=== PATIENT | male | born 1965 | race Hispanic/Latino ===

== ENCOUNTER 2019-09-30 21:12 | Inpatient (IN) | payer OTHER, SELFPAY ==
[~2019-09-30 21:12] MED LIST: Iopamidol-370 76% 500 ML 1 ML ONE
[2019-09-30] MEDS ORDERED: Ketorolac Tromethamine 30 MG/ML VIAL ONE (21:33)
--- NOTE | 2019-09-30 21:57 | RAD ---
Exam: Chest one view HISTORY:Fever. Headache. Comparison: None FINDINGS: Cardiac silhouette: Normal Aorta: Unremarkable Pulmonary vessels: Normal Costophrenic angles: Clear LUNGS: No masses or consolidation. Pneumothorax: None Osseous abnormalities: None IMPRESSION: No acute cardiopulmonary process.
[2019-09-30 22:03] LABS: Hemoglobin 11.1 g/dL (14.0-18.0); Mean Corpuscular HGB CONC 34.6 g/dL (32.0-36.0); Red Blood Cell (RBC) Count 3.18 mill/uL (4.70-6.10); White Blood Cell (WBC) Count 12.7 thou/uL (4.8-10.8)
[2019-09-30 22:10] LABS: ALT (SGPT) 39 U/L (8-55); AST (SGOT) 18 U/L (5-34); Albumin 3.7 g/dL (3.5-5.0); Alkaline Phosphatase 100 U/L (40-110); Anion Gap 13 mmol/L (10-20); BUN (Urea Nitrogen) 24 mg/dL (8.4-25.7); Bilirubin, Total 5.2 mg/dL (0.2-1.2); Calc. Creatinine Clearance 0 mL/min (70-130); Calcium 8.7 mg/dL (7.8-10.44); Carbon Dioxide 20 mmol/L (22-29); Chloride 102 mmol/L (98-107); Estimated GFR-MDRD 45; Globulin 2.8 g/dL (2.4-3.5); Glucose 353 mg/dL (70-105); Potassium 4.1 mmol/L (3.5-5.1); Protein, Total 6.5 g/dL (6.0-8.3); Sodium 131 mmol/L (136-145)
[2019-09-30 22:16] LABS: Mean Platelet Volume 9.1 fL (7.4-10.4); Platelet Count 115 thou/uL (130-400)
[2019-09-30 22:18] LABS: Band 60 % (5-11); Lymphocytes 2 % (21-51); MDiff Complete? YES; Macrocytosis SLIGHT = 6-15 cells (100X) (0-5/hpf); Metamyelocyte 2 % (0-0); Monocytes 3 % (0-10); Neutrophil 32 % (42-75); Platelet Morphology Comment Appears Decreased; Polychromasia SLIGHT = 2-3 cells (100X) (0-2/hpf); Reactive Lymphocytes 1 % (0-10); Reflex for Review?? YES
[2019-09-30] MEDS ORDERED: cefTRIAXone\\ROCEPHIN 2 GM VIAL ONE (23:11)
[2019-09-30] MEDS ORDERED: Vancomycin HCl 1.75 GM in Sodium Chloride 0.9% 500 ML IVPB SCH (23:15)
[2019-09-30 23:17] LABS: Bilirubin Negative (Negative); Blood, Urine Trace (Negative); Clarity Clear (Clear); Glucose, Urine (Dipstick) Greater than 1000 mg/dL (Negative); Ketone, Urine Negative (Negative); Leukocyte 250 Leu/uL (Negative); Nitrite Negative (Negative); Protein, Urine (Dipstick) 30 mg/dL (Neg-Trace); RBC/HPF 0-3 HPF (0-3); Specific Gravity, Urine 1.024 (1.002-1.036); Squamous Epithelial 0-3 HPF (0-3); WBC/HPF 21-50 HPF (0-3)
[2019-09-30 23:20] LABS: Bacteria/HPF 1+ HPF (None Seen)
[2019-09-30] MEDS ORDERED: Albuterol 200 PUFF (6.7GM INHALER) ONE (23:22)
[2019-09-30] MEDS ORDERED: Midazolam HCl 2 mg/2 ml Vial ONE (23:33)
[2019-09-30] MEDS ORDERED: cloNIDine 0.1 MG TAB PO PRN (23:40)
[2019-09-30] MEDS ORDERED: Ondansetron PF 4 MG/2 ML Vial IVP PRN (23:40)
[2019-09-30] MEDS ORDERED: Promethazine HCl 12.5 MG in Sodium Chloride 0.9% 50 ML IVPB PRN (23:40)
[2019-09-30] MEDS ORDERED: Morphine 2 MG/ML VIAL SLOW IVP PRN (23:40)
[2019-09-30] MEDS ORDERED: Guaifenesin DM 100-10/5 ML UDCUP PO PRN (23:40)
[2019-09-30] MEDS ORDERED: HYDROcodone/Acetaminophen 5/325 mg Tablet PO PRN (23:40)
[2019-09-30] MEDS ORDERED: Labetalol HCl 100 MG/20 ML VIAL SLOW IVP PRN (23:40)
[2019-09-30] MEDS ORDERED: hydrALAZINE 20 MG/ML VIAL SLOW IVP PRN (23:40)
[2019-09-30] MEDS ORDERED: Bisacodyl 10 MG SUPP PR PRN (23:42)
[2019-09-30] MEDS ORDERED: Bisacodyl 5 MG TAB PO PRN (23:42)
--- NOTE | 2019-09-30 23:44 | PDOC.HHP ---
Hospitalist HPI - History of Present Illness Fever, headache History of Present Illness: Patient is a 54 year old male with PMH T2DM, HTN who presents to ED for fever and headache x 1 day. Patient reports onset of symptoms yesterday, intermittent since them, somewhat responsive to OTC tylenol at home. Of note, had not had any shortness of breath before arrival, however right at time of admission patient developed shortness of breath, CTA chest and CT abdomen performed after this and results pending. CXR with no acute findings. Denies cough. Has some new abdominal pain in last few hours as well, denies nausea/vomiting/diarrhea. Denies sick contacts or coronavirus exposure. In ED, WBC 12, CXR no acute findings, hgb 11.7, na 131, Cr 1.6, glucose 353. lactic acid 2.7. UA with positive infectious markers. given 2.5L of fluid, given toradol with improvement of symptoms. given vancomycin and ceftriaxone and albuterol. Hospitalist ROS - Review of Systems Constitutional: reports: fever, chills, weakness Eyes: denies: pain, vision change, conjunctivae inflammation, eyelid inflammation, redness, other ENT: denies: ear pain, ear discharge, nose pain, nose discharge, nose congestion , mouth pain, mouth swelling, throat pain, throat swelling, other Respiratory: reports: shortness of breath, wheezing. denies: cough, dry, hemoptysis, SOB with excertion, pleuritic pain, sputum, other Cardiovascular: denies: chest pain, palpitations, orthopnea, paroxysmal noc. dyspnea, edema, light headedness, other Gastrointestinal: denies: nausea, vomiting, abdominal pain, diarrhea, constipation, melena, hematochezia, other Genitourinary: denies: dysuria, frequency, incontinence, hematuria, retention, other Musculoskeletal: denies: neck pain, shoulder pain, arm pain, back pain, hand pain, leg pain, foot pain, other Skin: denies: rash, lesions, star, bruising, other Neurological: denies: weakness, numbness, incoordination, change in speech, confusion, seizures, other All other systems reviewed; all pertinent +/- noted in HPI/Subj - Medication Medications: reviewed, none Hospitalist History - Past Medical History Other Medical History: DM, HTN - Past Surgical History Past Surgical History: reports: no pertinent history - Family History Family History: reports: no pertinent history - Social History Smoking Status: Never smoker Alcohol: reports: None Drugs: reports: none - Exam General Appearance: NAD, awake alert Eye: PERRL, anicteric sclera ENT: normocephalic atraumatic, no oropharyngeal lesions, moist mucosa Neck: supple, symmetric, no JVD, no thyromegaly, no lymphadenopathy, no carotid bruit Heart: RRR, no murmur, no gallops, no rubs, normal peripheral pulses Respiratory: CTAB, no rales, no ronchi, normal chest expansion, no tachypnea, normal percussion, wheezes Gastrointestinal: soft, non-tender, non-distended, normal bowel sounds, no palpable masses, no hepatomegaly, no splenomegaly, no bruit Extremities: no cyanosis, no clubbing, no edema Skin: normal turgor, no lesions, no rashes Neurological: cranial nerve grossly intact, normal sensation to touch, no weakness, no focal deficits, no new deficit Musculoskeletal: normal tone, normal strength, no muscle wasting Psychiatric: normal affect, normal behavior, A&O x 3 Hospitalist Results - Labs Result Diagrams: 09/30/19 21:38 09/30/19 21:38 Lab results: WBC 12.7 thou/uL (4.8-10.8) H 09/30/19 21:38 Hgb 11.1 g/dL (14.0-18.0) L 09/30/19 21:38 Hct 32.2 % (42.0-52.0) L 09/30/19 21:38 MCV 101.0 fL (78.0-98.0) H 09/30/19 21:38 Plt Count 115 thou/uL (130-400) L 09/30/19 21:38 Band Neuts % (Manual) 60 % (5-11) H 09/30/19 21:38 Sodium 131 mmol/L (136-145) L 09/30/19 21:38 Potassium 4.1 mmol/L (3.5-5.1) 09/30/19 21:38 Chloride 102 mmol/L (98-107) 09/30/19 21:38 Carbon Dioxide 20 mmol/L (22-29) L 09/30/19 21:38 BUN 24 mg/dL (8.4-25.7) 09/30/19 21:38 Creatinine 1.60 mg/dL (0.7-1.3) H 09/30/19 21:38 Glucose 353 mg/dL (70-105) H 09/30/19 21:38 Lactic Acid 2.7 mmol/L (0.5-2.2) H 09/30/19 21:38 Calcium 8.7 mg/dL (7.8-10.44) 09/30/19 21:38 Total Bilirubin 5.2 mg/dL (0.2-1.2) H 09/30/19 21:38 AST 18 U/L (5-34) 09/30/19 21:38 ALT 39 U/L (8-55) 09/30/19 21:38 Alkaline Phosphatase 100 U/L (40-110) 09/30/19 21:38 Serum Total Protein 6.5 g/dL (6.0-8.3) 09/30/19 21:38 Albumin 3.7 g/dL (3.5-5.0) 09/30/19 21:38 Urine Ketones Negative mg/dL (Negative) 09/30/19 22:58 Urine Blood Trace (Negative) A 09/30/19 22:58 Urine Nitrite Negative (Negative) 09/30/19 22:58 Ur Leukocyte Esterase 250 Cisco/uL (Negative) A 09/30/19 22:58 Urine RBC 0-3 HPF (0-3) 09/30/19 22:58 Urine WBC 21-50 HPF (0-3) A 09/30/19 22:58 Ur Squamous Epith Cells 0-3 HPF (0-3) 09/30/19 22:58 Urine Bacteria 1+ HPF (None Seen) A 09/30/19 22:58 Hospitalist H&P A/P - Plan Plan: Patient is a 54 year old male with PMH T2DM, HTN who presents to ED for fever and headache x 1 day. # sepsis suspected due to UTI # UTI - admit to floor - vancomycin/levaquin - discontinued ceftraxone due to possible allergy - follow up cultures # wheezing, SOB - happened after ceftriaxone, switched abx to levaquin, added ceftriaxone to allergy list, resolved wheezing with albuterol - follow up Ct abdomen, CTA chest # uncontrolled DM - A1C - moderate SSI # hyponatremia # ALANA suspect prerenal due to sepsis, trend BMP and follow up now that flori has had IVF DVT/GI ppx Full code
[2019-10-01] MEDS ORDERED: Acetaminophen 500 MG TAB ONE (00:25)
[2019-10-01 00:36] LABS: Lactic Acid 3.7 mmol/L (0.5-2.2)
[2019-10-01] MEDS: Sodium Chloride 0.9% 1,000 ML IV SCH ×3 (03:09→20:58)
[2019-10-01] MEDS ORDERED: Dextrose 5% in Water 1,000 ML IV PRN (03:26)
[2019-10-01] MEDS ORDERED: Dextrose 50% Abboject 50 ML SYRINGE SLOW IVP PRN (03:26)
[2019-10-01 04:11] VITALS: BMI 29.4
[2019-10-01 04:14] LABS: Hemoglobin A1c 6.3 % (4.0-6.0)
[2019-10-01] MEDS: HumaLOG 300 UNITS/3 ML VIAL SC PRN (06:34)
--- NOTE | 2019-10-01 07:23 | CT ---
PRELIMINARY REPORT/[facility]/EMERGENCY AFTER HOURS PROCEDURE EXAM: CT Chest with Intravenous Contrast. CT Abdomen and Pelvis with Intravenous Contrast CLINICAL HISTORY: 54-year-old male presents with a chief complaint of fever and headache. Patient reports onset of symp toms yesterday, intermittent since then. Patient denies any significant changes yesterday. Patient states he took some Tylenol about 2 hours prior to arrival for the headache and fever, this did bring the fever down a little bit. No nausea or vomiting, denies any cough or shortness of breath, denies any upper respiratory symptoms, denies any abdominal pain or chest pain. Patient denies being around anyone has been sick. Denies any coronavirus exposure. Patient denies traveling anywhere. TECHNIQUE: Axial computed tomography images of the chest, abdomen and pelvis with intravenous contrast. Coronal and sagittal reformatted images provided. CONTRAST: With; ISOVUE 370,100mL COMPARISON: None provided. FINDINGS: CHEST: LUNGS: No pulmonary mass. No focal airspace consolidation. Bibasilar dependent atelectasis. PLEURAL SPACES: No pleural effusion. No pneumothorax. HEART AND MEDIASTINUM: No cardiomegaly. No significant pericardial effusion. LYMPH NODES: No lymphadenopathy. ABDOMEN AND PELVIS: LIVER: Unremarkable. 9 mm low-density lesion in the left hepatic lobe too small to characterize. Statistic ally likely a cyst. GALLBLADDER AND BILE DUCTS: Unremarkable. No calcified stone. No ductal dilation. PANCREAS: Unremarkable. SPLEEN: Unremarkable. ADRENAL GLANDS: Unremarkable. KIDNEYS, URETERS, AND BLADDER: Heterogeneous enhancement within the lower pole of the right kidney with striation. Focal area of hy poattenuation in the upper pole the right kidney measuring 2.1 cm. Multiple cysts within the left kidney measuring up to 3.0 cm at the lower pole. No ureteral or bladder calculi. STOMACH AND BOWEL: No obstruction. No wall thickening. No CT evidence of colitis or acute diverticulitis. APPENDIX: No CT evidence for appendicitis. PERITONEUM: No free fluid. No free air. No abscess. LYMPH NODES: No lymphadenopathy. REPRODUCTIVE: Unremarkable as visualized. Coarse calcifications within the prostate. VASCULATURE: No aortic aneurysm. BONES AND SOFT TISSUES: No acute osseous abnormality. Left greater than right fat-containing inguinal hernias. Slight herni ation of the sigmoid colon into the left sided hernia. IMPRESSION: 1. No acute thoracic abnormality. 2. Heterogeneous enhancement of the right kidney with areas of hypoattenuation and striation. This is nonspecific and could be related to pyelonephritis in the appropriate clinical setting. Correlate with findings on urinalysis. These could also represent cysts but given the ill-defined na ture, further evaluation would be suggested on follow-up with nonemergent dedicated renal CT or MRI. 3. Bilateral inguinal hernias with slight herniation of the sigmoid colon into the left sided hernia . No evidence of incarceration or strangulation. ELECTRONICALLY SIGNED BY: Justin Ruiz M.D. Oct 01, 2019 12:36:08 AM CDT This report is intended for review by the ordering physician only, in accordance of law. If you recei ve this report in error, please call [facility] at [phone]. FINAL REPORT Exam: CT angiogram of the chest HISTORY: Dyspnea. Tachycardia. COMPARISON: None TECHNIQUE: CT angiogram of the chest is performed in the axial plane. Three-dimensional reformatted i mages are submitted for interpretation FINDINGS: Mediastinum: No mass, lymphadenopathy or hematoma. HEART: Normal size. No significant pericardial fluid. Aorta: No aneurysm or dissection Upper solid abdominal viscera: Hypoattenuation of the liver suggesting hepatic steatosis Trachea and central bronchi: Patent Pleural spaces: No effusion Lung parenchyma: Dependent atelectatic changes. Pneumothorax: None Osseous structures: No lytic or blastic lesions Pulmonary arteries:Limited evaluation of pulmonary arterial system to the level of the lobar arteries due to timing of contrast bolus. No filling defect. IMPRESSION: 1. This report is in agreement with initial report by [facility]. 2. No evidence of pulmonary artery embolism to the level of the lobar arteries. Evaluation the segmen bairon and subsegmental arteries is limited due to timing of contrast. Transcribed Date/Time: 10/01/2019 7:35 AM
--- NOTE | 2019-10-01 07:28 | CT ---
PRELIMINARY REPORT/[facility]/EMERGENCY AFTER HOURS PROCEDURE EXAM: CT Chest with Intravenous Contrast. CT Abdomen and Pelvis with Intravenous Contrast CLINICAL HISTORY: 54-year-old male presents with a chief complaint of fever and headache. Patient reports onset of symp toms yesterday, intermittent since then. Patient denies any significant changes yesterday. Patient states he took some Tylenol about 2 hours prior to arrival for the headache and fever, this did bring the fever down a little bit. No nausea or vomiting, denies any cough or shortness of breath, denies any upper respiratory symptoms, denies any abdominal pain or chest pain. Patient denies being around anyone has been sick. Denies any coronavirus exposure. Patient denies traveling anywhere. TECHNIQUE: Axial computed tomography images of the chest, abdomen and pelvis with intravenous contrast. Coronal and sagittal reformatted images provided. CONTRAST: With; ISOVUE 370,100mL COMPARISON: None provided. FINDINGS: CHEST: LUNGS: No pulmonary mass. No focal airspace consolidation. Bibasilar dependent atelectasis. PLEURAL SPACES: No pleural effusion. No pneumothorax. HEART AND MEDIASTINUM: No cardiomegaly. No significant pericardial effusion. LYMPH NODES: No lymphadenopathy. ABDOMEN AND PELVIS: LIVER: Unremarkable. 9 mm low-density lesion in the left hepatic lobe too small to characterize. Statistic ally likely a cyst. GALLBLADDER AND BILE DUCTS: Unremarkable. No calcified stone. No ductal dilation. PANCREAS: Unremarkable. SPLEEN: Unremarkable. ADRENAL GLANDS: Unremarkable. KIDNEYS, URETERS, AND BLADDER: Heterogeneous enhancement within the lower pole of the right kidney with striation. Focal area of hy poattenuation in the upper pole the right kidney measuring 2.1 cm. Multiple cysts within the left kidney measuring up to 3.0 cm at the lower pole. No ureteral or bladder calculi. STOMACH AND BOWEL: No obstruction. No wall thickening. No CT evidence of colitis or acute diverticulitis. APPENDIX: No CT evidence for appendicitis. PERITONEUM: No free fluid. No free air. No abscess. LYMPH NODES: No lymphadenopathy. REPRODUCTIVE: Unremarkable as visualized. Coarse calcifications within the prostate. VASCULATURE: No aortic aneurysm. BONES AND SOFT TISSUES: No acute osseous abnormality. Left greater than right fat-containing inguinal hernias. Slight herni ation of the sigmoid colon into the left sided hernia. IMPRESSION: 1. No acute thoracic abnormality. 2. Heterogeneous enhancement of the right kidney with areas of hypoattenuation and striation. This is nonspecific and could be related to pyelonephritis in the appropriate clinical setting. Correlate with findings on urinalysis. These could also represent cysts but given the ill-defined na ture, further evaluation would be suggested on follow-up with nonemergent dedicated renal CT or MRI. 3. Bilateral inguinal hernias with slight herniation of the sigmoid colon into the left sided hernia . No evidence of incarceration or strangulation. ELECTRONICALLY SIGNED BY: Justin Ruiz M.D. Oct 01, 2019 12:36:08 AM CDT This report is intended for review by the ordering physician only, in accordance of law. If you recei ve this report in error, please call [facility] at [phone]. FINAL REPORT EXAM: CT ABDOMEN AND PELVIS HISTORY: Diffuse abdominal pain COMPARISON: None. Procedure: Multiple contiguous axial images were obtained and a CT of the abdomen and pelvis with IV contrast. C oronal reformats were performed. FINDINGS: Lower Chest: Dependent atelectatic changes Vessels: Normal caliber aorta. Heart: Normal heart size Abdomen: Portal vein:Patent Gallbladder: No calcified gallstones. Normal caliber wall. Liver: Hypoattenuation involving segment 3 of the liver is too small to characterize and measures 1.1 x 1.2 cm. Pancreas: within normal limits. Spleen: within normal limits. Adrenals: within normal limits. Kidneys: There is a striated nephrogram of the right kidney. Hypodensities in the left kidney are wel l circumscribed and may represent cortical cysts. Bilaterally no evidence of hydronephrosis. There is bilateral perinephric fat stranding, nonspecific. Bilaterally no evidence of obstructive uropathy. Peritoneum: There is fluid tracking along both paracolic gutters. Bowel: Limited evaluation due to the lack of oral contrast administration. No evidence of bowel obstr uction. Ileocecal junction is unremarkable. Normal caliber appendix. Scattered fecal material in a nondistended, nondilated colon. Mesentery and Retroperitoneum: No enlarged mesenteric or retroperitoneal lymph nodes. Abdominal Wall: Bilateral inguinal hernias. There is herniation of the descending colon at the level left inguinal hernia without definite incarceration. Pelvis: Reproductive Organs: Reproductive organs are unremarkable. Pelvis: No mass, lymphadenopathy, free air or free fluid. Bladder: within normal limits. Bones: Bilateral pars defects at L5 with associated grade 1 anterolisthesis of L5 upon S1 IMPRESSION: 1. This report is in agreement with initial report by [facility]. 2. Heterogeneous attenuation with striated nephrogram of the right kidney. Correlate for pyelonephrit is. 3. Left inguinal hernia with a short segment of sigmoid colon extending through the defect. No eviden ce of incarceration. General surgical consultation is recommended. CODE T Transcribed Date/Time: 10/01/2019 7:38 AM
[2019-10-01] MEDS: Enoxaparin Sodium 40 MG/0.4 ML SYRINGE SC SCH (08:42)
[2019-10-01] MEDS: Famotidine 20 MG TAB PO SCH ×2 (08:42→20:19)
[2019-10-01] MEDS ORDERED: Enoxaparin Sodium 40 MG/0.4 ML SYRINGE SC SCH (09:00)
[2019-10-01] MEDS ORDERED: Famotidine 20 MG TAB PO SCH (09:00)
--- NOTE | 2019-10-01 14:27 | PDOC.HOSPP ---
- Subjective Encounter Date: 10/01/19 Encounter Time: 13:00 Subjective: had one episode loose stool this am no abd pain or nausea, no sob feels better this am - Objective Vital Signs & Weight: Vital Signs (12 hours) Temp Pulse Ox 10/01/19 08:00 96 10/01/19 04:10 98.8 F Weight Admit Weight 205 lb 4.8 oz Weight 205 lb 4.8 oz Most Recent Monitor Data Heart Rate from ECG 131 NIBP 185/98 NIBP BP-Mean 127 Respiration from ECG 39 SpO2 96 I&O: 09/30/19 10/01/19 10/02/19 06:59 06:59 06:59 Intake Total 120 Output Total 300 Balance 120 -300 Result Diagrams: 09/30/19 21:38 09/30/19 21:38 Additional Labs: Accuchecks 10/01/19 10/01/19 06:30 02:42 POC Glucose 224 H 222 H Hospitalist ROS - Medication Medications: Active Medications Generic Name Dose Route Start Last Admin Trade Name Freq PRN Reason Stop Dose Admin Enoxaparin Sodium 40 mg 10/01/19 09:00 10/01/19 08:42 Lovenox SC 40 mg 0900 AMNA Administration Famotidine 20 mg 10/01/19 09:00 10/01/19 08:42 Pepcid PO 20 mg BID AMNA Administration Sodium Chloride 1,000 mls @ 125 mls/hr 09/30/19 23:59 10/01/19 03:09 Normal Saline 0.9% IV 1,000 mls .Q8H AMNA Administration Levofloxacin 750 mg/ Device 150 mls @ 100 mls/hr 10/01/19 04:00 10/01/19 06: 19 IVPB 150 mls 0400 AMNA Administration Insulin Human Lispro 0 units 10/01/19 03:26 10/01/19 06:34 Humalog SC 4 unit .MODERATE SLIDING SC PRN Administration Moderate Correctional Scale - Exam General Appearance: awake alert Eye: PERRL, anicteric sclera ENT: no oropharyngeal lesions, moist mucosa Neck: supple, no JVD Heart: RRR, no murmur Respiratory: no wheezes, no rales Gastrointestinal: soft, non-tender, non-distended, normal bowel sounds, no guarding, no rigidity Extremities: no cyanosis, no edema Neurological: cranial nerve grossly intact, no focal deficits Psychiatric: A&O x 3 Hosp A/P (1) Sepsis Code(s): A41.9 - SEPSIS, UNSPECIFIED ORGANISM Status: Acute Qualifiers: Sepsis type: Escherichia coli (2) Bacteremia Code(s): R78.81 - BACTEREMIA Status: Acute (3) UTI (urinary tract infection) Status: Acute Qualifiers: Urinary tract infection type: acute cystitis Hematuria presence: without hematuria Qualified Code(s): N30.00 - Acute cystitis without hematuria (4) DM type 2 (diabetes mellitus, type 2) Status: Acute Qualifiers: Diabetes mellitus retirement insulin use: without rodent exterminator use (5) HTN (hypertension) Code(s): I10 - ESSENTIAL (PRIMARY) HYPERTENSION Status: Chronic Qualifiers: Hypertension type: essential hypertension Qualified Code(s): I10 - Essential (primary) hypertension - Plan is on levaquin, vanc, iv fluids await full cutlure results hemodynamically stable may transfer to med floor
[2019-10-01 17:07] LABS: SARS-CoV-2 MS2 Positive; SARS-CoV-2 N Gene Negative; SARS-CoV-2 S Gene Negative; SARS-CoV-2 by NAA Not Detected (NotDetected); SARS-CoV-2 orf1ab Negative
[2019-10-01] MEDS: Acetaminophen 325 MG TAB PO PRN (20:19)
[2019-10-01] MEDS: Insulin Glargine 10 UNITS in Pre-Filled Syringe SC SCH (20:59)
[2019-10-01] MEDS ORDERED: cefTRIAXone\\ROCEPHIN 1 GM in Sodium Chloride 0.9% 100 ML IVPB SCH (23:00)
[2019-10-01] MEDS ORDERED: Vancomycin 1.5 GRAM/300 ML BAG 1.5 GM in Premix Bag 1 BAG IVPB SCH (23:59)
[2019-10-02] MEDS: Sodium Chloride 0.9% 1,000 ML IV SCH ×3 (04:06→18:53)
[2019-10-02] MEDS: HumaLOG 300 UNITS/3 ML VIAL SC PRN ×2 (05:59→17:56)
[2019-10-02] MEDS: Insulin Glargine 10 UNITS in Pre-Filled Syringe SC SCH ×2 (08:21→20:43)
[2019-10-02] MEDS: Enoxaparin Sodium 40 MG/0.4 ML SYRINGE SC SCH (08:21)
[2019-10-02] MEDS: Famotidine 20 MG TAB PO SCH ×2 (08:21→20:42)
[2019-10-02 15:28] LABS: Hemoglobin 10.4 g/dL (14.0-18.0); Mean Corpuscular HGB CONC 34.3 g/dL (32.0-36.0); Mean Corpuscular Hemoglobin 35.1 pg (27.0-31.0); Mean Platelet Volume 9.8 fL (7.4-10.4); Platelet Count 112 thou/uL (130-400); RBC Distribution Width 13.3 % (11.5-14.5); Red Blood Cell (RBC) Count 2.97 mill/uL (4.70-6.10); White Blood Cell (WBC) Count 10.5 thou/uL (4.8-10.8)
[2019-10-02 15:46] LABS: Anion Gap 13 mmol/L (10-20); BUN (Urea Nitrogen) 28 mg/dL (8.4-25.7); Calc. Creatinine Clearance 80 mL/min (70-130); Calcium 8.6 mg/dL (7.8-10.44); Carbon Dioxide 17 mmol/L (22-29); Chloride 107 mmol/L (98-107); Estimated GFR-MDRD 53; Glucose 219 mg/dL (70-105); Potassium 3.4 mmol/L (3.5-5.1); Sodium 134 mmol/L (136-145)
[2019-10-02] MEDS ORDERED: Amoxicillin/Potassium Clav 875 MG TAB PO SCH (16:00)
--- NOTE | 2019-10-02 16:07 | PDOC.HOSPP ---
- Subjective Encounter Date: 10/02/19 Encounter Time: 13:00 Subjective: The patient states he feels fantastic. He had some abdominal pain yesterday, but no longer has any pain. He denies constipation. He had some liquid stool yesterday. NO pain with urination. He does urinate frequently but has diabetes No shortness of breath. Patient is requesting to go home. - Objective Vital Signs & Weight: Vital Signs (12 hours) Temp Pulse Resp BP Pulse Ox 10/02/19 08:00 97 10/02/19 07:54 98.3 F 106 H 24 H 152/77 H 97 10/02/19 04:37 98.3 F 107 H 16 156/92 H 98 Weight Admit Weight 205 lb 4.8 oz Weight 205 lb 4.8 oz Most Recent Monitor Data Heart Rate from ECG 139 NIBP 147/92 NIBP BP-Mean 110 Respiration from ECG 29 SpO2 96 I&O: 10/01/19 10/02/19 10/03/19 06:59 06:59 06:59 Intake Total 120 Output Total 300 Balance 120 -300 Result Diagrams: 10/02/19 15:16 10/02/19 15:16 Additional Labs: Accuchecks 10/02/19 10/02/19 10/01/19 11:47 04:41 20:11 POC Glucose 157 H 177 H 197 H Hospitalist ROS - Review of Systems Constitutional: denies: fever, chills ENT: denies: mouth swelling Respiratory: denies: cough, dry, shortness of breath - Medication Medications: Active Medications Generic Name Dose Route Start Last Admin Trade Name Charlie PRN Reason Stop Dose Admin Acetaminophen 650 mg 09/30/19 23:40 10/01/19 20:19 Tylenol PO 650 mg Q4H PRN Administration Headache/Fever/Mild Pain (1-3) Enoxaparin Sodium 40 mg 10/01/19 09:00 10/02/19 08:21 Lovenox SC 40 mg 0900 AMNA Administration Famotidine 20 mg 10/01/19 09:00 10/02/19 08:21 Pepcid PO 20 mg BID AMNA Administration Sodium Chloride 1,000 mls @ 125 mls/hr 09/30/19 23:59 10/02/19 10:56 Normal Saline 0.9% IV 1,000 mls .Q8H AMNA Administration Levofloxacin 750 mg/ Device 150 mls @ 100 mls/hr 10/01/19 04:00 10/02/19 04: 05 IVPB 150 mls 0400 AMNA Administration Insulin Glargine 10 units/ 0.1 mls @ 0 mls/hr 10/01/19 21:00 10/02/19 08:21 Miscellaneous Medication SC 0.1 mls BID AMNA Administration Insulin Human Lispro 0 units 10/01/19 03:26 10/02/19 05:59 Humalog SC 2 unit .MODERATE SLIDING SC PRN Administration Moderate Correctional Scale - Exam General Appearance: NAD, awake alert Eye: PERRL, anicteric sclera ENT: normocephalic atraumatic, no oropharyngeal lesions Neck: no JVD Heart: RRR, no murmur, no gallops, no rubs Respiratory: CTAB, no wheezes, no rales, no ronchi Gastrointestinal: soft, non-tender, non-distended, normal bowel sounds, no hepatomegaly, no splenomegaly Extremities: no cyanosis, no clubbing, no edema Skin: normal turgor, no lesions, no rashes Neurological: cranial nerve grossly intact, normal sensation to touch, no focal deficits, no new deficit Musculoskeletal: normal tone, normal strength, no muscle wasting Hosp A/P - Plan This is a 54 year old male who presented with sepsis secondary to UTI Sepsis secondary to UTI with E coli bacteremia - was started on IV vancomycin and levaquin - will discontinue vancomycin. Levaquin is resistant on urine and blood culture - switch to augmentin. Monitor for any allergic reaction given possible allergy to ceftriaxone - continue IV fluids, still tachycardic - COVID negative Hypokalemia - potassium 3.4, replace with potassuim ALANA - improving, creatinine down to 1.39 - continue with IV fluids Type II diabetes - continue lantus 10 units bid - Hb A1C 6.3 Macrocytic anemia - Hb 10, MCV elevated, will check B12/folate/TSH in am Disposition: d/c home tomorrow
[2019-10-02] MEDS: Amoxicillin/Potassium Clav 875 MG TAB PO SCH (20:42)
[2019-10-02] MEDS: Acetaminophen 325 MG TAB PO PRN (21:22)
[2019-10-02] MEDS ORDERED: Potassium Chloride 20 MEQ TAB PO SCH (21:30)
[2019-10-03] MEDS: Sodium Chloride 0.9% 1,000 ML IV SCH (03:01)
[2019-10-03 06:52] LABS: Hemoglobin 9.8 g/dL (14.0-18.0); Mean Corpuscular HGB CONC 33.9 g/dL (32.0-36.0); Mean Corpuscular Hemoglobin 33.9 pg (27.0-31.0); Mean Platelet Volume 9.6 fL (7.4-10.4); Platelet Count 99 thou/uL (130-400); RBC Distribution Width 13.5 % (11.5-14.5); Red Blood Cell (RBC) Count 2.88 mill/uL (4.70-6.10); White Blood Cell (WBC) Count 8.3 thou/uL (4.8-10.8)
[2019-10-03 07:15] LABS: Anion Gap 11 mmol/L (10-20); BUN (Urea Nitrogen) 26 mg/dL (8.4-25.7); Calc. Creatinine Clearance 95 mL/min (70-130); Calcium 8.6 mg/dL (7.8-10.44); Carbon Dioxide 19 mmol/L (22-29); Chloride 110 mmol/L (98-107); Estimated GFR-MDRD 65; Glucose 133 mg/dL (70-105); Potassium 3.6 mmol/L (3.5-5.1); Sodium 136 mmol/L (136-145)
[2019-10-03 07:38] LABS: Thyroid Stimulating Hormone 1.2722 uIU/mL (0.35-4.94)
[2019-10-03] MEDS: Famotidine 20 MG TAB PO SCH (07:39)
[2019-10-03] MEDS: Amoxicillin/Potassium Clav 875 MG TAB PO SCH (07:39)
[2019-10-03] MEDS: Enoxaparin Sodium 40 MG/0.4 ML SYRINGE SC SCH (07:40)
[2019-10-03] MEDS: Insulin Glargine 10 UNITS in Pre-Filled Syringe SC SCH (07:40)
[2019-10-03 07:47] VITALS: BP 154/84; TEMP 98.2
--- NOTE | 2019-10-04 16:30 | DIS ---
DATE OF ADMISSION: 09/30/2019 DATE OF DISCHARGE: 10/03/2019 DISCHARGE DIAGNOSES: 1. Sepsis secondary to E coli bacteremia and E coli urinary tract infection with pyelonephritis. 2. Acute kidney injury. 3. Leukocytosis. 4. Macrocytic anemia. 5. Liver cyst. 6. Renal cyst. BRIEF HISTORY OF PRESENT ILLNESS: This is a 54-year-old male with a past medical history of diabetes and hypertension, who presented to the emergency room with fever and headache. He had also developed some abdominal pain while he is in the emergency room, but denied any nausea, vomiting, or diarrhea. He denied any dysuria or urinary frequency. When he presented to the emergency room, he was found to have a temperature of a 101.4. His white count was 12.7. He had a heart rate of 133. He was admitted for possible sepsis. He was given IV vancomycin and ceftriaxone and admitted for further workup. HOSPITAL COURSE: Sepsis secondary to E coli bacteremia and pyelonephritis: The patient was initially given IV vancomycin and Levaquin. The ceftriaxone reportedly caused mild wheezing, so this was listed as a possible allergy. Blood cultures came back positive for E coli in 2/2 bottles. Urine culture also tested positive for E coli. CT scan of his abdomen and pelvis showed a renal cyst versus pyelonephritis. The patient reported significant improvement and was afebrile within a span of 24 hours. He reported his abdominal pain had resolved. His urine culture did mention resistance to Levaquin, therefore he was switched to Augmentin. He received one day of Augmentin without any allergic reaction. He will be discharged with Augmentin for an additional 13 days. He was tested for COVID, which came back negative. Macrocytic anemia: The patient had hemoglobin of 9.8. His B12, folate, and TSH were unremarkable. Consider further outpatient workup. DISCHARGE PHYSICAL EXAMINATION: VITAL SIGNS: Temperature 98.2, heart rate 90, respiratory rate 18, O2 saturation 99% on room air, blood pressure 154/84. GENERAL: The patient is alert, awake, and oriented x3. CVS: Regular rate and rhythm with no murmurs, rubs, or gallops. LUNGS: Clear to auscultation bilaterally. ABDOMEN: Positive bowel sounds, soft, nontender, nondistended. EXTREMITIES: No edema. PERTINENT LABORATORY DATA: CBC 10/02: White count 8.3, hemoglobin 9.8, hematocrit 28.8, platelet count of 99. BMP 10/02: Normal. LFTs 09/29: Normal. Vitamin B12: 1241. Folate: 13.5. TSH: 1.27. UA 09/29: Shows 250 leukocyte esterase, negative nitrite, 21 to 50 white blood cells, 30 of protein. Urine culture shows 100,000 E coli: It is resistant to Cipro, Levaquin, and Bactrim. It is sensitive to nitrofurantoin, meropenem, Zosyn, tobramycin, ceftriaxone, ceftazidime, cefoxitin, cefepime, ampicillin, ampicillin/sulbactam , and amikacin. Influenza panel: Negative. Blood cultures 09/29: Show 2/2 E coli. Sensitivities listed same as for the urine. Blood cultures 10/01: Negative. Imaging: CT abdomen and pelvis 09/29: Shows heterogeneous enhancement of the right kidney with areas of hypoattenuation and striation. This could represent cysts, but given the ill-defined nature, further evaluation would be suggested on followup with nonemergent dedicated renal CT or MRI. Bilateral inguinal hernias with slight herniation of the sigmoid colon into the left-sided hernia. Chest x-ray 09/29: No acute cardiopulmonary process. CTA thorax 09/29: Shows possible pyelonephritis. Bilateral inguinal hernias with slight herniation of the sigmoid colon. DISCHARGE CONDITION: Stable. ACTIVITY: As tolerated. DIET: Regular diet. DISCHARGE MEDICATIONS: Augmentin 875 mg p.o. q.12 hours for 13 days. He should resume his home metformin, which the patient states he has at home. DISCHARGE INSTRUCTIONS: The patient should follow up with his PCP in a week. He is to get a repeat CBC. He should also consider getting a renal CT scan versus MRI for further workup of possible renal cysts. Job ID: [id number] [facility]
== END 2019-10-03 10:48 | disposition home or self-care (01) | DRG 872 ==
LOC: ERS 21:12 → IMCU/EMU 23:39 → ERS 10-01 01:03 → T4-A 10-01 15:35
PROVIDERS: ADMIT Internal Medicine; ATTEND Internal Medicine
DX: A41.51 Sepsis due to Escherichia coli [E. coli] (principal); N12 Tubulo-interstitial nephritis, not specified as acute or chronic; N17.9 Acute kidney failure, unspecified; E87.1 Hypo-osmolality and hyponatremia; D64.9 Anemia, unspecified; K76.89 Other specified diseases of liver; Z20.828 Contact with and (suspected) exposure to other viral communicable diseases; N28.1 Cyst of kidney, acquired; I10 Essential (primary) hypertension; E87.6 Hypokalemia; E11.9 Type 2 diabetes mellitus without complications; Z79.4 Long term (current) use of insulin
CPT/HCPCS: 36415; 36416; 71045; 71275; 74177; 80048; 80053; 81003; 81015; 82607; 82746; 83036; 83605; 84443; 85025; 85027; 85060; 87040; 87077; 87086; 87149; 87186; 87635; 87804; 93005; J0696; J1650; J1815; J1885; J1956; J2250; J3370; J7030; Q9967; U0003